=== PATIENT | female | born 1945 | race Caucasian/White ===

== ENCOUNTER 2016-08-01 11:54 | Emergency (ER) | payer OTHER ==
--- NOTE | 2016-08-01 14:10 | PROVIDER DOCUMENTATION ---
HPI-Musculoskeletal Pain/Inj - GENERAL Source: patient - HX OF PRESENT ILLNESS-MUSKULOSKELTAL Quality of Pain: reports: aching Severity in ED: moderate Onset/Duration: last night Timing: still present Any recent injury?: Yes Similar Symptoms Previously?: No Recently seen or treated by another doctor?: No <Leland Akhtar - Last Filed: 08/01/16 15:03> <Hamilton Marcial - Last Filed: 08/01/16 15:21> - GENERAL Chief Complaint: Fall Stated Complaint: FALL Time Seen by Provider: 08/01/16 13:34 - HX OF PRESENT ILLNESS-MUSKULOSKELTAL Nature of Presenting Problem: Presents to er with cc of left hand and left rib pain secondary to falling last night at [employer] landing on carpet reports hit back of her head but denies loc,n, v,blurry vision,memory loss. Takes daily aspirin. (Leland Akhtar) Review of Systems - Adult - REVIEW OF SYSTEMS - ADULT Constitutional: denies: chills, fever, fatique Eyes: reports: no symptoms reported Ears, Nose, Mouth & Throat: denies: ear pain, sinus problem, throat pain Cardiovascular: denies: chest pain, irregular heart rate, orthopnea, syncope Respiratory: reports: no symptoms reported Gastrointestinal: denies: abdominal pain, diarrhea, nausea, vomiting Genitourinary: denies: frequent UTI's, hematuria, hesitency, urgency Musculoskeletal: reports: see HPI, bone pain. denies: joint pain, joint swelling, neck pain Integumentary: reports: no symptoms reported Neurological: reports: no symptoms reported Psychiatric: reports: no symptoms reported Endocrine: reports: no symptoms reported Hematologic/Lymphatic: reports: no symptoms reported Allergic/Immunologic: reports: no symptoms reported All Other Systems: Reviewed and Negative <Leland Akhtar - Last Filed: 08/01/16 15:03> Past History - Adult - PAST MEDICAL HISTORY-ADULT Review of Records: reports: Nursing Assessment Review Major Childhood Illnesses: reports: denies history Cardiovascular: reports: HTN, HI Respiratory: reports: sleep apnea - PRIOR SURGERIES/PROCEDURES Surgical/Procedure History: reports: cholecystectomy - IMMUNIZATION STATUS Childhood Immunizations: See Nurse Assessment Flu Vaccine: See Nurse Assessment - SOCIAL HISTORY Smoking: denies Substance Use: none/never <Leland Akhtar - Last Filed: 08/01/16 15:03> Physical Exam-Injury Related - Physical Exam-Injury Related Initial Vital Signs Reviewed: Yes General Appearance: appears well, alert, no apparent distress Eyes: PERRL/EOMI, pink conjunctivae Neck: non-tender, full range of motion, supple, normal inspection Respiratory: chest non-tender, lungs clear, normal breath sounds, no pleuratic chest pain, no respiratory distress, no accessory muscle use, rib tenderness ( left lower ribs ttp) Cardiovascular: regular rate, rhythm, no edema, no gallop, no JVD, no murmur Abdominal Exam: normal bowel sounds, non tender, soft, no organomegaly, no pulsatile mass Back Exam: normal inspection, no CVA tenderness, no vertebral tenderness Extremity: normal range of motion, normal gait, normal inspection, no pedal edema, no calf tenderness, normal capillary refill, pelvis stable, tenderness ( ttp left hand 5th metacarpal ecchymosis.). negative: swelling Integumentary: normal color Psych/Mental Status: normal mood/affect, normal thought content, normal thought process, oriented x 3 - Glascow Coma Score Best Eye Response (Apache): (4) open spontaneously Best Verbal Response (Apache): (5) oriented Best Motor Response (Brian): (6) obeys commands Brian Total: 15 <Leland Akhtar - Last Filed: 08/01/16 15:03> Progress - XRAY 1 XRAY: Left XRAY Study: Chest, Ribs Impression: Normal XRAY Interpretation: nad 2 XRAY: Left XRAY Study: Hand Impression: Abnormal XRAY Interpretation: osteoarthritis no fx <Leland Akhtar - Last Filed: 08/01/16 15:03> <Hamilton Marcial - Last Filed: 08/01/16 15:21> - PLAN OF CARE/RESULTS Progress/Plan/Lab Results: Orders Category Date Time Status HAND COMPLETE LEFT [RAD] Stat Exams 08/01/16 13:53 Taken RIBS UNILAT W/PA CHEST LEFT [RAD] Stat Exams 08/01/16 13:53 Taken Vital Signs - 24 hr 08/01/16 12:02 Temperature 97.6 F Pulse Rate 79 Respiratory 20 Rate Blood Pressure 159/78 O2 Sat by Pulse 97 Oximetry (Leland Akhtar) Departure - Departure Time of Disposition Order: 15:04 Certified Medical Emergency: Emergent <Leland Akhtar - Last Filed: 08/01/16 15:03> - Departure Certified Medical Emergency: Emergent <Hamilton Marcial - Last Filed: 08/01/16 15:21> - Departure DIAGNOSIS: Contusion of rib on left side Qualifiers: Encounter type: initial encounter Qualified Code(s): S20.212A - Contusion of left front wall of thorax, initial encounter Fall Qualifiers: Encounter type: initial encounter Qualified Code(s): W19.XXXA - Unspecified fall, initial encounter Hand contusion Qualifiers: Encounter type: initial encounter Disposition: HOME 01 Condition: Good Additional Instructions: ED Follow Up Instructions: You have been treated by a care provider in the Emergency Department. These instructions are being provided to you so you can have an understanding of how to care for yourself upon discharge. Upon discharge from the Emergency Department, you are responsible for making arrangements for follow-up care by a physician of your choice. Take all prescribed medications as directed. Return to the Emergency Department immediately for any new or worsening symptoms. You may call the Physician Referral phone number at [phone] to obtain a list of Physicians who are taking new patients. Prescriptions: Tramadol [Ultram] 50 mg PO Q6H PRN PRN #12 tablet PRN Reason: Pain Referrals: Hipolito Green MD [Primary Care Provider] - Instructions: Rib Contusion, Hand Contusion Attestation - Scribe Verification/Attestation Scribe:: Leland Akhtar Acting as Scribe for:: Roya Womack Scribe documention review:: This chart was documented by a scribe and accurately reflects the service the provider performed and the decisions made by the provider. <Leland Akhtar - Last Filed: 08/01/16 15:03> Physician Attestation - Physician Attestation I, the provider, attest to the following statement:: Hamilton Marcial Physician documentation Attestation:: This documentation recorded by the scribe accurately reflects the service I personally performed and the decisions made by me. <Hamilton Marcial - Last Filed: 08/01/16 15:21>
--- NOTE | 2016-08-01 14:54 | Diag Imaging Result Document ---
PROCEDURE NAME: HAND COMPLETE LEFT - 08/01/2016 LEFT HAND 3 VIEWS: Findings There are severe degenerative changes at the 1st metacarpocarpal joint. There are no previous studies. There is no evidence of acute fracture or dislocation. IMPRESSION: Osteoarthritis.
--- NOTE | 2016-08-01 14:56 | Diag Imaging Result Document ---
PROCEDURE NAME: RIBS UNILAT W/PA CHEST LEFT - 08/01/2016 PA CHEST AND LEFT RIB SERIES, 5 VIEWS: FINDINGS: The inspiration is suboptimal. There is generalized osteopenia. No evidence of pneumothorax or pleural effusion is present. The ribs appear to be intact. Compared to 08/30/2014, there has been no significant change. IMPRESSION: Stable chest.
[2016-08-01 15:54] VITALS: BP 150/92
== END 2016-08-01 15:54 | disposition home or self-care (01) ==
LOC: P.ED 11:54
DX: S20.212A Contusion of left front wall of thorax, initial encounter (principal); S60.222A Contusion of left hand, initial encounter; M79.642 Pain in left hand; R07.81 Pleurodynia; W19.XXXA Unspecified fall, initial encounter; I10 Essential (primary) hypertension; I25.2 Old myocardial infarction; Z79.899 Other long term (current) drug therapy; Z79.82 Long term (current) use of aspirin
CPT/HCPCS: 71101; 99283

== ENCOUNTER 2018-07-28 11:58 | Inpatient (IN) ==
[2018-07-28] MEDS ORDERED: FLAGYL 500 MG/NS 500 MG/100 ML IVPB IV SCH (14:15)
[2018-07-28 14:56] LABS: BASO# 0.01 X1000 (0.0-0.2); BASO% 0.1 % (0.0-0.8); EOS# 0.16 X1000 (0.0-0.7); EOS% 2.4 % (0.0-10.0); HEMATOCRIT 42.6 % (37.0-47.0); HEMOGLOBIN 13.8 g/dL (12.0-16.0); LYMPH# 2.11 X1000 (1.2-3.4); LYMPH% 31.3 % (20.5-51.1); MCHC 32.4 g/dL (33-37); MCV 89.5 FL (81-99); MONO# 0.48 X1000 (0.11-0.59); MONO% 7.1 % (1.7-9.3); MPV 11.2 FL (7.4-10.4); NEUT# 3.99 X1000 (1.4-6.5); NEUT% 59.1 % (42.2-75.2); PLT 248 X1000 (130-400); RBC 4.76 XMIL (4.2-5.4); RDW 13.6 % (11.5-14.5); WBC 6.75 X1000 (4.8-10.8)
[2018-07-28 15:45] LABS: AGAP 11; ALB/GLOB RATIO 1.5; ALBUMIN 4.4 g/dL (3.5-5.0); ALKALINE PHOSPHATASE 87 U/L (32-104); AMYLASE 24 U/L (20-200); BUN 11 mg/dL (8-22); CALCIUM 8.7 mg/dL (8.8-10.2); CHLORIDE 101 mmol/L (98-107); COSMO 281; CREATININE 0.7 mg/dL (0.5-0.9); ESTIMATED GFR > 60; GLUCOSE 98 mg/dL (70-104); GOT 17 U/L (10-30); GPT 16 U/L (10-36); POTASSIUM 3.5 mmol/L (3.5-5.1); SODIUM 141 mmol/L (136-145); TCO2 29 mmol/L (25-35); TOTAL BILIRUBIN 0.53 mg/dL (0.20-1.00); TOTAL PROTEIN 7.3 g/dL (6.3-8.3)
[2018-07-28] MEDS ORDERED: GOLYTELY PO ONE (17:33)
--- NOTE | 2018-07-28 19:03 | Diag Imaging Result Doc PS360 ---
EXAM: CT ABD/PELVIS W/IV CONT ONLY - 07/28/2018 HISTORY: Abdominal pain TECHNIQUE: CT abdomen/pelvis with intravenous contrast. No oral contrast administered per request of the referring provider. COMPARISON: 07/23/[address] renal stone search FINDINGS: The visualized lung bases appear essentially clear. There are no substantial abnormalities of the liver, spleen, adrenal glands, or pancreas identified. The gallbladder surgically absent. The bilateral kidneys enhance homogeneously. There is no hydronephrosis. There is no substantial adenopathy identified. There are lumbar spine degenerative changes noted. There is no evidence of bowel obstruction. The appendix by history is surgically absent. There is some wall thickening along the colon which begins at about the mid transverse colon extends to the rectum. There is mild haziness of pericolic fat along the left colon. This is compatible with colitis. There is diverticulosis at the sigmoid colon, but there is no indication of diverticulitis. There is no abscess identified. There is no free air or substantial free fluid identified. There is been prior hysterectomy. IMPRESSION: Colitis from the mid transverse colon to the rectum. Diverticulosis at sigmoid colon, but no evidence of diverticulitis. No bowel obstruction. No abscess. No free air. This exam was performed using automated exposure control, adjustment of mA or kV according to patient size, and/or use of iterative reconstruction technique. Electronically signed by Vimal Atwood 07/28/2018 7:01 PM
[2018-07-28 20:50] LABS: URINE SOURCE CLEAN CATCH
[2018-07-28 20:53] LABS: BILIRUBIN URINE NEGATIVE (NEGATIVE); BLOOD URINE SMALL (NEGATIVE); COLOR YELLOW; GLUCOSE URINE NEGATIVE (NEGATIVE); KETONE URINE NEGATIVE (NEGATIVE); LEUKOCYTES URINE NEGATIVE (NEGATIVE); NITRITE URINE NEGATIVE (NEGATIVE); PH URINE 6.5; PROTEIN URINE NEGATIVE (NEGATIVE); SP GRAVITY URINE 1.038; TURBIDITY URINE CLEAR (CLEAR); UROBILINOGEN URINE NORMAL (NORMAL)
[2018-07-28 20:54] LABS: UR EPITHELIAL CELLS <10 /HPF (<10); URINE BACTERIA NEGATIVE /HPF; URINE RBC <10 /HPF (<10); URINE WBC <10 /HPF (<10)
[2018-07-28] MEDS ORDERED: SODIUM CHLORIDE 0.9% INJ SCH (21:30)
[2018-07-28] MEDS ORDERED: PROTONIX IV SCH (21:30)
--- NOTE | 2018-07-28 22:11 | HISTORY AND PHYSICAL ---
CHIEF COMPLAINT: Passing blood per rectum since yesterday. HISTORY OF PRESENT ILLNESS: She is a 72-year-old white female passing bloody diarrhea off and on for the last few weeks, and this morning she had profuse bleeding per rectum with left lower quadrant pain. It has been worsening. In my office, she brought a stool sample , bloody stool, and tender in the left side. Admitted to the hospital for hematochezia and further workup. CT scan showed diffuse colitis on the left side of the colon. GI consult was obtained by Dr. Hall. PAST MEDICAL HISTORY: Coronary artery disease status post stent in [place], diabetes, hypertension, acid reflux disease, osteoarthritis, kidney stones, rectocele. PAST SURGICAL HISTORY: Hemorrhoidectomy, cholecystectomy, hysterectomy, left knee arthroscopy initially, bilateral cataract surgery, left bunionectomy, shoulder surgery on the left side, total knee arthroplasty on the right side by Dr. Cervantes and decompression of the medial nerve of carpal tunnel surgery, right hammertoe surgery. MEDICATIONS: Coreg 25 p.o. b.i.d., hydrochlorothiazide 25 daily, MiraLAX daily , Prilosec 40 daily, ramipril 10 mg once daily, Reglan 5 twice daily, simvastatin 40 daily, tizanidine 4 mg t.i.d., Victoza 1.2 subcutaneous daily. ALLERGIES: Reported to Vivinol. SOCIAL HISTORY: . Three children. Lives in [place]. No smoking. No alcohol. FAMILY HISTORY: Father at the age of 84 from diabetes. Mom of heart attack at 63. Brother had liver mets. HEALTH MAINTENANCE: Influenza vaccine February 2018, pneumococcal 2014, shingles 2014, mammography December 2017, DEXA scan January 2016, colonoscopy [address] Mckinley. REVIEW OF SYSTEMS: HEENT: No headache. No vision problem. No earache. No sore throat. Neck: No goiter. No lymphadenopathy. No bruit. Cardiopulmonary: No chest pain, shortness of breath, PND, orthopnea. Gastrointestinal: No nausea, just abdominal cramping, diarrhea , bloody stools. Genitourinary: No urgency, hesitancy, frequency, dysuria. No swelling of feet. No back pain. Neurologic Exam: No focal symptoms or seizures. PHYSICAL EXAMINATION: VITAL SIGNS: Temperature is 98 degrees, pulse is 63, blood pressure is 160/64, 99% on room air. HEENT EXAM: Atraumatic, normocephalic. Pupils equal and reactive to light. TMs are normal. Nose and throat within normal limits. NECK: Supple. No lymphadenopathy. No goiter. CHEST: Bilateral air entry. HEART: Sounds are regular. BREAST EXAM: Deferred. ABDOMEN: Soft. Tender in the left lower quadrant. No signs of peritonitis. Gross bloody stool noted. NEUROLOGIC: No neurological deficits. INVESTIGATIONS: CBC: White cell count 6.7, hematocrit 42, platelets 248,000, ESR 7. SMA7 is normal. Amylase and LFTs were normal. Urinalysis is clear. CT scan of the abdomen and pelvis reported colitis from mid transverse colon to the rectum and diverticulosis, homogeneously involvement. ASSESSMENT AND PLAN: A 72-year-old white female basically admitted to the hospital with hematochezia with colitis on the CT scan. Plan is IV fluids and IV Flagyl and GI prophylaxis with IV Protonix and consult by Dr. Hall. We will check the inflammatory bowel disease panel. We will reconcile home medicines down the line. I did last week stool cultures for C difficile, was negative. She has not had any antibiotics. Lactoferrin is positive. We will follow up. Appreciate GI consult. cc: Petey Green MD [facility]
--- NOTE | 2018-07-28 22:26 | GASTROENTEROLOGY CONSULTATION ---
DATE: 07/28/2018 REASON FOR CONSULTATION: Rectal bleeding. HPI: Mrs. Siria Osuna is a 72-year-old woman with past medical history significant for hypertension, hyperlipidemia, CAD status his [place] and stent in the past, non insulin-dependent diabetes, who presents with 1 day of rectal bleeding that started this morning with dark blood and small clots. She says that she had some diarrhea on Friday and Friday, and developed bleeding this morning which prompted her to be seen by her PCP today. She admits to having intermittent watery diarrhea over last 6 months, which prompted her PCP to stop metformin. She denies having any other associated symptoms except for some generalized weakness and nausea as well as some cramping abdominal pain when she is about to have a bowel movement. She is on aspirin 81 mg once daily for NSAIDs. No prior history of rectal bleeding. She says she had a colonoscopy in the last [address] Mckinley . PAST SURGERY HISTORY: As per HPI. PAST SURGICAL HISTORY: Status post cholecystectomy, hysterectomy and bilateral knee replacements. FAMILY HISTORY: No significant GI malignancies. SOCIAL HISTORY: No alcohol, smoking or drug use. MEDICATIONS: Simvastatin, ramipril, omeprazole, carvedilol, Victoza. ALLERGIES: To Demerol. PHYSICAL EXAMINATION: Vital Signs: Temperature 98.5 degrees, heart rate 69, respiratory rate 18, blood pressure 155/72, O2 saturation 96% on room air. General: Is awake, alert , oriented, no acute distress. HEENT: Sclerae anicteric. Moist mucous membranes. Extraocular motor intact. Neck: Supple. No JVD, no lymphadenopathy. Cardiac: Regular rate and rhythm. No murmurs, rubs, or gallops. Lungs: Clear to auscultation bilaterally. No wheezing. Abdomen: Soft, nontender, nondistended. Normoactive bowel sounds. No rebound or guarding. No ascites. Extremities: No clubbing, cyanosis or edema. Neurologic: Nonfocal. LABS: White count of 6.75, hemoglobin 13.8, platelets 248,000, MCV of 89.5, sodium 141, potassium 2.3, chloride 101, bicarb 29, BUN 11, creatinine 0.7. LFTs are normal. UA just shows minimal blood. CT of the abdomen and pelvis shows colitis from the midtransverse colon to the rectum, diverticulosis in the sigmoid colon but no evidence of diverticulitis. Stool C difficile toxin is negative. ASSESSMENT AND PLAN: Ms. Siria Osuna is a 72-year-old woman who presents with hematochezia in the setting of recent diarrhea and colitis on imaging. The patient reports having some mild abdominal cramping associated with her diarrhea and rectal bleeding. Her symptoms initially started with watery diarrhea and progressed to having blood this morning. Differential includes diverticular bleeding, bleeding hemorrhoids and ischemic colitis. Her hemoglobin is within normal limits. Suspect this is very distal bleeding. Will plan for diagnostic colonoscopy tomorrow. Will continue to trend hemoglobin and hematocrit, and transfuse as needed to maintain hemoglobin between 7 and 8, we are holding her aspirin. The patient does report having intermittent diarrhea for the last 6 months. There is also a possibility that there may be underlying ulcerative colitis, which we will also look for as well. For hypertension, continue her home medications. For diabetes, hold her Victoza and give sliding scale insulin. Her coronary artery disease is stable. No chest pain. Thank you for this consult. Will follow with you. Please call with any questions or concerns. cc: Petey Green MD [facility]
[2018-07-29] MEDS: FLAGYL 500 MG/NS 500 MG/100 ML IVPB IV SCH ×5 (04:54→22:13)
[2018-07-29] MEDS: NS 1,000 ML IV SCH ×2 (05:28→18:52)
[2018-07-29 06:31] LABS: BASO# 0.01 X1000 (0.0-0.2); BASO% 0.1 % (0.0-0.8); EOS# 0.18 X1000 (0.0-0.7); EOS% 2.2 % (0.0-10.0); HEMATOCRIT 38.2 % (37.0-47.0); HEMOGLOBIN 12.6 g/dL (12.0-16.0); LYMPH# 2.16 X1000 (1.2-3.4); LYMPH% 26.7 % (20.5-51.1); MCH 29.4 PG (27-31); MONO# 0.63 X1000 (0.11-0.59); MONO% 7.8 % (1.7-9.3); MPV 11.3 FL (7.4-10.4); NEUT% 63.2 % (42.2-75.2); PLT 220 X1000 (130-400); RBC 4.29 XMIL (4.2-5.4); RDW 13.6 % (11.5-14.5); WBC 8.08 X1000 (4.8-10.8)
[2018-07-29 06:51] LABS: AGAP 12; BUN 7 mg/dL (8-22); C REACTIVE PROT QUANT 3.87 mg/L (0.00-5.00); CALCIUM 8.7 mg/dL (8.8-10.2); CHLORIDE 101 mmol/L (98-107); COSMO 279; CREATININE 0.5 mg/dL (0.5-0.9); ESTIMATED GFR > 60; GLUCOSE 94 mg/dL (70-104); POTASSIUM 3.4 mmol/L (3.5-5.1); SODIUM 141 mmol/L (136-145); TCO2 28 mmol/L (25-35)
[2018-07-29] MEDS ORDERED: DIPRIVAN 1% ONE (07:06)
[2018-07-29] MEDS ORDERED: XYLOCAINE-MPF 2% ONE (07:07)
[2018-07-29] MEDS ORDERED: FENTANYL ONE (07:09)
[2018-07-29] MEDS: HUMULIN R SUBQ SCH ×4 (07:26→23:26)
[2018-07-29 07:36] LABS: SED RATE 6 mm/hr (0-20)
--- NOTE | 2018-07-29 09:57 | OPERATIVE NOTE ---
PROCEDURE DATE: 07/29/2018 PROCEDURE PERFORMED: Examined, colonoscopy with biopsy. PROVIDER: Osito Hall MD. INDICATIONS: Rectal bleeding, colitis. MEDICATIONS: Monitored anesthesia care. DESCRIPTION OF PROCEDURE: Prior to the procedure, a history and physical was performed, and patient's medications and allergies were reviewed. The patient's tolerance to previous anesthesia was also reviewed. The risks and the benefits of the procedure, and the sedation options and risks were discussed with the patient. All questions were answered and informed consent was obtained. After reviewing the risks and benefits, the patient was deemed in satisfactory condition to undergo the procedure. The colonoscope was passed under direct visualization. Throughout the procedure, the patient's blood pressure, pulse, and oxygen saturations were monitored continuously. The colonoscope was introduced through the anus and advanced to the cecum identified by the appendiceal orifice and ileocecal valve. The colonoscopy was performed without difficulty. The quality of the prep was adequate. The patient tolerated the procedure well. COMPLICATIONS: No immediate complications. ESTIMATED BLOOD LOSS: Minimal. FINDINGS: There was patchy erythema consistent with colitis from 20 cm to 45 cm from the anal verge. Biopsies were obtained with cold biopsy forceps. Minimal diverticula was seen in the sigmoid colon. The cecum, ascending, transverse colon, and rectum were normal. Retroflexion in the rectum was normal. IMPRESSION: 1. Distal descending and sigmoid colitis consistent with probable ischemic colitis. Biopsies obtained. 2. Sigmoid diverticulosis. 3. Normal right colon and rectum. RECOMMENDATIONS: - Continues supportive care with IVFs - start full liquid diet - Continue supportive care, serial abdominal exams - Transition PPI from IV to PO to once daily - Await pathology results - No indication for antibiotics at this time We will follow with you. Please call with any questions or concerns. cc: Petey Green MD [facility]
--- NOTE | 2018-07-29 20:11 | PROGRESS NOTE ---
DATE: 07/29/2018 SUBJECTIVE: The patient still has left-sided abdominal pain, diarrhea, bloody stools. Waiting for colonoscopy. OBJECTIVE: Vital signs: Temperature is 98 degrees, pulse 73, blood pressure 170/71. HEENT Exam: Within normal limits. Neck: Supple. No lymphadenopathy. Chest: Clear. Cardiovascular: Heart sounds are regular. Abdomen: Belly is soft. No signs of peritonitis. LABORATORY DATA: CBC is normal. Sedimentation rate is normal. CRP was normal. ASSESSMENT AND PLAN: Lower gastrointestinal bleeding, most likely ischemic colitis. It does not appear to be any infectious etiology or inflammatory bowel disease. Based on the colonoscopy further recommendations will be followed. Continue IV fluids and metronidazole. We will keep away from blood thinners for the time being and will follow up. LEVEL OF DOCUMENTATION: 25 minutes. cc: Petey Green MD
[2018-07-30] MEDS: FLAGYL 500 MG/NS 500 MG/100 ML IVPB IV SCH ×2 (05:30→10:11)
[2018-07-30] MEDS: PRILOSEC PO SCH (06:15)
[2018-07-30] MEDS: HUMULIN R SUBQ SCH ×4 (06:56→21:17)
--- NOTE | 2018-07-30 10:24 | GASTROENTEROLOGY PROGRESS NOTE ---
DATE: 07/30/2018 SUBJECTIVE: Patient is resting in bed. She is feeling better. She complains of mild soreness left lower quadrant. She denies any fevers, rigors, chills. OBJECTIVE: Vital signs: Temperature 98.2, pulse of 79, respiratory rate 18, blood pressure 154/70, saturating 98% room air. Body weight of 197 pounds, BMI of 33.8 kg. General: lying in bed, in no acute distress. HEENT: No pallor. No icterus. Neck: Supple. Abdomen: Discomfort in the left lower quadrant. No rebound or guarding. Extremities: No cyanosis, clubbing. Neurologic: She is alert, awake, oriented x3. LABS: 1. Hemoglobin and hematocrit on 07/29/2018 was 12.6 and 38.2. Blood glucose of 124 today. 2. Stool studies showed positive Hemoccult. Stool for white cells was none seen. Stool culture showed no enteric pathogens. Stool C. difficile toxin was negative. IMPRESSION AND PLAN: 1. Lower gastrointestinal bleed. Bleeding likely secondary to ischemic colitis. Colonoscopy was done by Dr. Hall which showed evidence of distal descending sigmoid colitis consistent with probable ischemic colitis. Biopsies obtained. Will followup the biopsy results. 2. Diverticulosis sigmoid. She will continue on a high fiber diet. Avoid excessive corn, nuts, and seeds in diet. 3. Gastrointestinal prophylaxis with protein pump inhibitors. 4. Diabetes. She is on sliding scale insulin. 5. The patient on full liquid diet. The patient will follow up with Dr. Hall after discharge in 4 to 6 weeks. 6. The above plans were with the patient and with Dr. Green and all questions answered. Please call us with any further questions. cc: MD Petey Mena MD [facility]
[2018-07-30] MEDS: COREG PO SCH ×2 (10:57→21:09)
[2018-07-30] MEDS: NS 1,000 ML IV SCH (14:55)
[2018-07-30] MEDS: FLAGYL PO SCH ×2 (15:21→21:09)
--- NOTE | 2018-07-30 19:53 | PROGRESS NOTE ---
DATE: 07/30/2018 SUBJECTIVE: The patient still has some belly pain and minimal bleeding per rectum. REVIEW OF SYSTEMS: None reported. OBJECTIVE: Vital Signs: Temperature is 98 degrees, pulse is 74, blood pressure is stable. HEENT: Within normal limits. Neck: Supple. Chest: Clear. Heart: Sounds are regular. Abdomen: Belly is soft, nontender. No neurological deficits. ASSESSMENT/PLAN: Lower gastrointestinal bleed due to ischemic mostly colitis and follow up on biopsy report and slowly start her home medicines. We will start on Coreg, simvastatin. Full liquid diet. Out of the bed. If she is stable, will discharge next 48 hours. LEVEL OF DOCUMENTATION: 25 minutes. cc: Petey Green MD
[2018-07-30] MEDS: ZOCOR PO SCH (21:09)
[2018-07-31] MEDS: PRILOSEC PO SCH ×2 (05:07→08:12)
[2018-07-31] MEDS: HUMULIN R SUBQ SCH ×4 (08:12→20:51)
[2018-07-31] MEDS: COREG PO SCH ×2 (10:17→20:00)
[2018-07-31] MEDS: FLAGYL PO SCH ×3 (10:17→16:37)
--- NOTE | 2018-07-31 18:28 | PROVIDER PROGRESS NOTE ---
Progress Note - - 07/31/2018 SUBJECTIVE: No acute overnight events. No N/V/F, abdominal pain. Scant rectal bleeding. Tolerating full liquids. OBJECTIVE Last Vital Signs Temp 98.8 F 07/31/18 16:13 Pulse 67 07/31/18 16:13 Resp 18 07/31/18 16:13 BP 139/63 07/31/18 16:13 Pulse Ox 97 07/31/18 16:13 Height 5 ft 4 in Weight 197 lb GEN: awake, alert, NAD HEENT: anicteric, MMM NECK: supple; no jvd CV: RRR, no murmurs PULM: CTAB, no wheezing ABD: soft NT/ND, NABS, no rebound or guarding EXT: no cce NEURO: nonfocal A/P: Ms. Siria Osuna is a 72-year-old woman who presents with hematochezia in the setting of recent diarrhea found to have descending colon and sigmoid colitis on CT and colonoscopy. Biopsies revealing acute colitis consistent with ischemic colitis. No evidence of Crohn's. The patient reports resolution of abdominal pain. No N/V/F. She reports scant rectal bleeding. She is asking for food. #Ischemic colitis: improving; no ulcerations seen on colonoscopy; therefore, no indication for antibiotics; advance diet to low residue diet #Rectal bleeding: from above #Diverticulosis: without diverticulitis; advised patient to stay on low fiber diet for 1 week before reincorporating fiber #DM2: SSI Patient is okay to be discharged from GI perspective. Will sign off. Please call with questions.
--- NOTE | 2018-07-31 19:58 | PROGRESS NOTE ---
DATE: 07/31/2018 SUBJECTIVE: The patient is a little better and biopsy findings active colitis most likely ischemic, and patient is anxious to go home. PHYSICAL EXAMINATION: Temp is 98.8 degrees, pulse is 67, blood pressure is 139/63. HEENT exam within normal limits.Neck: Supple. No lymphadenopathy. Chest: Is clear. Heart sounds are regular. Abdomen: Belly is soft, nontender. ASSESSMENT AND PLAN: GI bleeding most likely ischemic colitis. Follow up on inflammatory bowel disease panel and advance the diet and will reconcile the medicines Coreg, simvastatin, and continue on Flagyl, Prilosec, and if she is stable for next 24 to 48 hours. We will discharge and follow up as an outpatient. Follow up on stool cultures. White cells negative. C. difficile was negative. LEVEL OF DOCUMENTATION: 25 minutes. cc: Petey Green MD
[2018-07-31] MEDS: ZOCOR PO SCH (20:00)
[2018-08-01] MEDS: HUMULIN R SUBQ SCH ×3 (06:53→17:49)
[2018-08-01] MEDS: PRILOSEC PO SCH (06:54)
[2018-08-01] MEDS: FLAGYL PO SCH ×3 (08:52→17:52)
[2018-08-01] MEDS: COREG PO SCH ×2 (08:52→20:18)
--- NOTE | 2018-08-01 18:38 | PROGRESS NOTE ---
DATE: 08/01/2018 SUBJECTIVE: The patient is doing well. Still have left upper quadrant pain. IBD panel was negative. REVIEW OF SYSTEMS: None reported. No obvious bleeding noted. PHYSICAL EXAMINATION: Temperature is 98.4 degrees, pulse is 65, blood pressure is 164/82.HEENT: Within normal limits. Neck: Supple. No lymphadenopathy. Chest: Bilateral air entry. Heart: Sounds are regular. Abdomen: Belly is soft, tender. No peripheral edema. No obvious neurological deficits. INVESTIGATIONS: None reported. IBD panel was negative. ASSESSMENT AND PLAN: Lower gastrointestinal bleed. It is most likely ischemic colitis. IBD panel was negative as well as infectious causes. Slowly reconcile home medicines. Continue on Flagyl. Avoid blood thinners for the time being. GI soft diet and will check the labs. Discussed with the family at bedside. LEVEL OF DOCUMENTATION: 25 minutes. cc: Petey Green MD
[2018-08-01] MEDS: ZOCOR PO SCH (20:18)
[2018-08-01] MEDS: ALTACE PO SCH (20:18)
[2018-08-02] MEDS: HUMULIN R SUBQ SCH ×5 (00:59→21:04)
[2018-08-02] MEDS: PRILOSEC PO SCH (06:31)
[2018-08-02 06:50] LABS: BASO# 0.04 X1000 (0.0-0.2); BASO% 0.7 % (0.0-0.8); EOS# 0.36 X1000 (0.0-0.7); EOS% 6.3 % (0.0-10.0); HEMATOCRIT 40.7 % (37.0-47.0); HEMOGLOBIN 13.3 g/dL (12.0-16.0); LYMPH# 1.85 X1000 (1.2-3.4); LYMPH% 32.5 % (20.5-51.1); MCH 29.5 PG (27-31); MCHC 32.7 g/dL (33-37); MCV 90.2 FL (81-99); MONO# 0.47 X1000 (0.11-0.59); MONO% 8.3 % (1.7-9.3); MPV 11.3 FL (7.4-10.4); NEUT# 2.97 X1000 (1.4-6.5); NEUT% 52.2 % (42.2-75.2); PLT 245 X1000 (130-400); RBC 4.51 XMIL (4.2-5.4); RDW 13.9 % (11.5-14.5); WBC 5.69 X1000 (4.8-10.8)
[2018-08-02] MEDS: FLAGYL PO SCH ×3 (08:41→17:14)
[2018-08-02] MEDS: ALTACE PO SCH ×2 (08:41→21:04)
[2018-08-02] MEDS: COREG PO SCH ×2 (08:41→21:04)
--- NOTE | 2018-08-02 13:01 | PROGRESS NOTE ---
DATE: 08/02/2018 SUBJECTIVE: line tender in the left lower quadrant, pain, no active bleeding noted. OBJECTIVE: Vital Signs: Temperature is 97.9 degrees. Pulse is 57. Blood pressure is stable. HEENT: Exam within normal limits. Neck: Supple. No lymphadenopathy. Chest: Clear. Cardiac: Heart sounds are regular. Abdomen: Belly is soft, slightly tender in the left lower quadrant area. No signs of peritonitis. Neurologic: No neurological deficits. INVESTIGATIONS: CBC: White cell count 5.6, hematocrit 40, platelets 245,000. Glucose is 139. Inflammatory bowel disease panel was negative. Lower GI bleeding due to active colitis, most likely ischemic. PLAN: Continue on Flagyl and advance the diet. Restart her home medicines. Hold on the blood thinners. If she is stable, pain is less adequate, we will discharge in the morning. LEVEL OF DOCUMENTATION: 25 minutes. cc: Petey Green MD
[2018-08-02] MEDS: ZOCOR PO SCH (21:04)
[2018-08-03] MEDS: PRILOSEC PO SCH ×2 (05:50→06:14)
[2018-08-03] MEDS: HUMULIN R SUBQ SCH (06:14)
[2018-08-03 07:39] VITALS: BP 156/77
[2018-08-03] MEDS: ALTACE PO SCH (09:15)
[2018-08-03] MEDS: COREG PO SCH (09:15)
[2018-08-03] MEDS: FLAGYL PO SCH (09:16)
--- NOTE | 2018-08-04 02:07 | DISCHARGE SUMMARY ---
ADMISSION DATE: 07/28/2018 DISCHARGE DATE: 08/03/2018 DISCHARGING DIAGNOSES: 1. Hematochezia. 2. Lower gastrointestinal bleeding due to ischemic colitis. SECONDARY DIAGNOSES: 1. Coronary artery disease with a stent. 2. Type 2 diabetes. 3. Hypertension. 4. Acid reflux disease. 5. Osteoarthritis. 6. Kidney stones. 7. Rectocele. 8. Osteoarthritis with a total knee arthroplasty on the right side. CONSULTS: Dr. Aquino and also procedures colonoscopy findings colitis at the splenic flexure. RADIOLOGY PROCEDURES: CT scan of the abdomen and pelvis, colitis from mid transverse colon to the rectum, diverticulosis of sigmoid colon. No evidence of diverticulitis. LABORATORY DATA: CBC: White cell count 5.6, hematocrit 40, platelets 245,000. SMA 7 is normal. Inflammatory bowel disease panel was negative. Sedimentation rate and CRP were normal. BRIEF HISTORY: Please see the H and P that was done on the day of admission 07/28/2018. In brief, she is a 72-year-old white female who basically came in with intermittent diarrhea for the last 1 month, and started having hematochezia. Further workup revealed the patient was ruled out for infectious causes like C diff and also inflammatory bowel disease. CT findings and endoscopy findings consistent with ischemic colitis. The patient was given Flagyl and Protonix, hold the blood thinners. The patient is tolerating GI soft diet, and the patient was stable. At the time of discharge hemodynamics and CBC was normal. DISCHARGE INSTRUCTIONS ARE FOLLOWS: Zocor 40 mg daily, Ramipril 10 p.o. b.i.d., Prilosec 40 daily, Coreg 25 at bedtime and 25 in the morning. Hold on Victoza. Flagyl 500 t.i.d. for 21 days. Follow up in my office as well as with Dr. Hall in 2 weeks. cc: MD Osito Bravo MD Manish Arora, MD
== END 2018-08-03 09:36 | disposition home or self-care (01) | DRG 395 ==
LOC: DIRADM 11:58 → 4N 12:40
PROVIDERS: ADMIT Internal Medicine; ATTEND Internal Medicine
CPT/HCPCS: 74177; 80048; 80053; 81001; 82150; 82272; 82948; 83520; 85025; 85651; 86140; 86255; 86671; 87045; 87046; 87205; 87324; 88305; 88313; 89055; A9270; C9113; J3010; J7030; Q9967; S0030; S0164; XXXXX